=== PATIENT | female | born 1960 | race Caucasian/White ===

== ENCOUNTER 2019-06-03 02:59 | Outpatient (CLI) | payer BC | END 2019-06-03 23:59 | disposition home or self-care (01) | LOC: DIABETIC 02:59 | PROVIDERS: ATTEND Family Medicine | DX: Z71.3 Dietary counseling and surveillance (principal) | CPT/HCPCS: 97802 ==

== ENCOUNTER 2019-08-26 04:15 | Outpatient (CLI) | payer BC | END 2019-08-26 23:59 | disposition home or self-care (01) | LOC: DIABETIC 04:15 | PROVIDERS: ATTEND Family Medicine | DX: E78.5 Hyperlipidemia, unspecified (principal); Z71.3 Dietary counseling and surveillance | CPT/HCPCS: 97803 ==

== ENCOUNTER 2020-07-22 06:01 | Day surgery (SDC) | payer BC ==
[2020-07-22] VITALS (11 sets, daily range): BP systolic 93–138; BP diastolic 54–93
[~2020-07-22] VITALS: Ht 162.6 cm; Wt 64.7 kg
[2020-07-22] MEDS ORDERED: normal saline 1,000 ML IV SCH (06:15)
[2020-07-22] MEDS ORDERED: LORazepam 0.5 MG tablet PO PRN (06:15)
[2020-07-22] MEDS ORDERED: diphenhydrAMINE 25mg capsule PO PRN (06:15)
[2020-07-22] MEDS ORDERED: LIDOcaine/PRILOcaine 5gm cream TP ONE (06:15)
[2020-07-22 06:55] LABS: ALBUMIN 4.1 G/DL (3.4-5.0); ANION GAP 9 (8-16); BLOOD UREA NITROGEN 17 MG/DL (7-18); BUN/CREATININE RATIO 23.9 (6.6-38.0); CALCIUM 8.4 MG/DL (8.5-10.1); CHLORIDE 107 MMOL/L (99-107); CREATININE 0.71 MG/DL (0.40-0.90); GLUCOSE 91 MG/DL (70-104); POTASSIUM 3.6 MMOL/L (3.5-5.1); SODIUM 141 MMOL/L (135-145); eGFR 84 ML/MIN
[2020-07-22 06:56] LABS: BASOPHILS % (AUTO) 0.9 % (0-1); EOSINOPHILS # (AUTO) 0.3 X10'3 (0-0.9); EOSINOPHILS % (AUTO) 4.7 % (0-6); HEMOGLOBIN 13.4 g/dl (12.0-16.0); LYMPHOCYTES # (AUTO) 1.8 X10'3 (1.1-4.8); MEAN CORPUSCULAR HEMOGLOBIN 32.3 PG (27.0-31.0); MEAN CORPUSCULAR HGB CONC 33.5 g/dL (33.0-36.5); MEAN CORPUSCULAR VOLUME 96.4 FL (78-98); MEAN PLATELET VOLUME 6.4 FL (7.4-10.4); MONOCYTES # (AUTO) 0.4 X10'3 (0-0.9); MONOCYTES % (AUTO) 6.9 % (2-12); NEUTROPHILS # (AUTO) 2.9 X10'3 (1.8-7.7); NEUTROPHILS % (AUTO) 54.5 % (42-75); PLATELET COUNT 359 X10'3 (140-440); RED BLOOD COUNT 4.15 X10'6 (4.20-5.60); RED CELL DISTRIBUTION WIDTH 13.1 % (11.5-14.5); WHITE BLOOD COUNT 5.3 X10'3 (4.5-11.0)
[2020-07-22 06:58] LABS: PARTIAL THROMBOPLASTIN TIME 31 SECONDS (22-32)
[2020-07-22] MEDS ORDERED: midazolam 2 mg/2 ml injection ONE (07:20)
[2020-07-22] MEDS ORDERED: fentaNYL/PF 50MCG/1 ML 2ML syringe ONE (07:20)
[2020-07-22] MEDS ORDERED: nitroGLYCERIN-Tridil 50MG/D5W 250 ML IV ONE (07:20)
[2020-07-22] MEDS ORDERED: verapamil 2.5 mg/ml inj IV ONE (07:20)
[2020-07-22] MEDS ORDERED: heparin 1,000unit/ml 10ml vial 10 ML ONE (07:21)
[2020-07-22] MEDS ORDERED: LIDOcaine 1% (10mg/ml)w/preservative injection 20ml MDV ONE (07:21)
[2020-07-22] MEDS ORDERED: iohexol 350 MG/ML 50ML vial IV ONE ×2 (07:21→08:45)
[2020-07-22] MEDS ORDERED: iohexol 350MG/ML 100ml bottle IV ONE (07:21)
[2020-07-22] MEDS ORDERED: MULT-1074 PO (07:54)
[2020-07-22] MEDS ORDERED: UBID200C37 PO (07:56)
[2020-07-22] MEDS ORDERED: CYAN100087 PO (07:56)
[2020-07-22] MEDS ORDERED: MAGN500C16 PO (07:57)
[2020-07-22] MEDS ORDERED: ASCO500C18 PO (07:57)
[2020-07-22] MEDS ORDERED: ROSU5TAB PO (07:58)
[2020-07-22] MEDS ORDERED: TRAM50TA2 PO (08:00)
[2020-07-22] MEDS ORDERED: diphenhydrAMINE 50 mg/ml inj ONE (09:03)
[2020-07-22] MEDS ORDERED: HYDROmorphone inj. 0.5 MG/0.5 ML DISP.SYRIN IV ONE (09:25)
--- NOTE | 2020-07-22 13:20 | NUR ---
VASCULAR BAND REMOVED, SITE CLEANSED WITH STERILE 4X4 AND NS. NEW DRSG APPLIED STERILE 2X2 AND TEGADERM , TOPPED WITH FOLDED 4X4 AND TEGADERM. PT AWARE THAT LUCÍA WRAP MAY BE REMOVED. JUST ADDED FOR SUPPORT AND COMFORT. PT STATES UNDERSTANDING.
== END 2020-07-22 14:00 | disposition home or self-care (01) ==
LOC: SSTAY O 06:01
PROVIDERS: ATTEND Internal Medicine Cardiovascular Disease
DX: R53.83 Other fatigue (principal); R06.02 Shortness of breath; I25.10 Atherosclerotic heart disease of native coronary artery without angina pectoris; E78.5 Hyperlipidemia, unspecified; F41.9 Anxiety disorder, unspecified; F32.9 Major depressive disorder, single episode, unspecified; M41.9 Scoliosis, unspecified; E66.3 Overweight; Z68.25 Body mass index [BMI] 25.0-25.9, adult; Z98.890 Other specified postprocedural states; Z79.899 Other long term (current) drug therapy; Z72.89 Other problems related to lifestyle; Z82.49 Family history of ischemic heart disease and other diseases of the circulatory system
CPT/HCPCS: 36415; 80048; 85025; 85610; 85730; 93005; 93458; 99152; 99153; C1769; C1894; J1170; J1200; J1644; J2001; J2250; J3010; J7030; Q9967; A4620; A5120; A6258; J3490